=== PATIENT | male | born 1965 | race American Indian/Alaskan Native ===

== ENCOUNTER 2017-04-05 13:55 | Emergency (ER) | payer SELFPAY ==
[2017-04-05 14:31] LABS: Hematocrit 41.5 % (35.5-45.6); Hemoglobin 13.8 gm/dl (11.8-15.2); Mean Corpuscular HGB Conc 33 % (32-34); Mean Corpuscular Hemoglobin 31 pg (28-32); Mean Corpuscular Volume 93 fl (84-94); Platelet Count 244 K/mm3 (140-440); Red Blood Count 4.48 M/mm3 (3.65-5.03); Red Cell Distribution Width 13.9 % (13.2-15.2); White Blood Count 6.3 K/mm3 (4.5-11.0)
[2017-04-05 14:48] LABS: Anion Gap 17 mmol/L; BUN/Creatinine Ratio 11; Blood Urea Nitrogen 9 mg/dL (9-20); Calcium 8.5 mg/dL (8.4-10.2); Carbon Dioxide 26 mmol/L (22-30); Chloride 100.7 mmol/L (98-107); Glucose 107 mg/dL (75-100); Potassium 3.4 mmol/L (3.6-5.0); Sodium 140 mmol/L (137-145)
[2017-04-05 15:01] LABS: Blastocytes % (Manual) 0 %; Diff Status Complete; RBC Morphology Normal
[2017-04-05 16:18] LABS: Mucus,Urine 1+ /HPF
[2017-04-05 16:25] LABS: Bilirubin,Urine NEG (Negative); Blood,Urine MOD (Negative); Ketones,Urine NEG (Negative); Leukocyte Esterase,Urine NEG (Negative); Nitrite,Urine NEG (Negative); Protein,Urine <15 mg/dL mg/dL (Negative)
--- NOTE | 2017-04-05 17:35 | Emergency Department Report ---
ED Male HPI - General Chief complaint: Urogenital-Male Stated complaint: BLOOD IN URINE Source: patient Mode of arrival: Ambulatory Limitations: No Limitations - History of Present Illness Initial comments: 51 y/o M presents with a complaint of blood in his urine. 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 Pt denies any visible blood in his urine, any frequency, urgency, or dysuria. 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 Therefore he states that occasional he donna have right flank pain that comes and goes. He denies a previous hx of kidney stones, bladder or prostate cancer. No family hx of such either. Pt denies any other symptoms today including no pain, fever, chills, chest pain, or SOB at this time. NKDA. STEARNS Complaint: other (hematuria) -: month(s) (2 months ago) - Related Data Allergies Allergy/AdvReac Type Severity Reaction Status Date / Time No Known Allergies Allergy Unverified 04/05/17 14:07 ED Review of Systems ROS: Stated complaint: BLOOD IN URINE Other details as noted in HPI Constitutional: denies: chills, fever Eyes: denies: eye pain, eye discharge, vision change ENT: denies: ear pain, throat pain Respiratory: denies: cough, shortness of breath, wheezing Cardiovascular: denies: chest pain, palpitations Gastrointestinal: denies: abdominal pain, nausea, diarrhea Genitourinary: hematuria, other Musculoskeletal: back pain (right flank pain on occasion) Skin: denies: rash, lesions Neurological: denies: headache, weakness, paresthesias Psychiatric: denies: anxiety, depression ED Past Medical Hx - Past Medical History Previous Medical History?: No - Surgical History Past Surgical History?: No - Social History Smoking Status: Never Smoker Substance Use Type: Alcohol ED Physical Exam - General Limitations: No Limitations General appearance: alert, in no apparent distress - Head Head exam: Present: atraumatic, normocephalic - Eye Eye exam: Present: normal appearance - Neck Neck exam: Present: normal inspection - Respiratory Respiratory exam: Present: normal lung sounds bilaterally. Absent: respiratory distress - Cardiovascular Cardiovascular Exam: Present: regular rate, normal rhythm. Absent: systolic murmur, diastolic murmur, rubs, gallop - GI/Abdominal GI/Abdominal exam: Present: soft, normal bowel sounds - Back Exam Back exam: Present: normal inspection, other (no CVAT b/l, no flank pain at this time) - Neurological Exam Neurological exam: Present: alert, oriented X3 - Psychiatric Psychiatric exam: Present: normal affect, normal mood - Skin Skin exam: Present: warm, dry, intact, normal color. Absent: rash ED Course Vital Signs 04/05/17 04/05/17 04/05/17 14:07 16:51 19:43 Temperature 98.4 F 97.7 F Pulse Rate 81 66 63 Respiratory 18 18 18 Rate Blood Pressure 146/94 Blood Pressure 129/83 158/92 [Right] O2 Sat by Pulse 97 95 98 Oximetry ED Medical Decision Making - Lab Data Result diagrams: 04/05/17 14:19 04/05/17 14:19 - Radiology Data Radiology results: report reviewed, image reviewed CT abdomen and pelvis: Was indicative of umbilical hernia, simple renal cyst, and small left adrenal adenoma. - Medical Decision Making Basic bloodwork and labs were performed: CBC, BMP UA, and GC/chlaymdia were conducted. All of which were essentially unremarkable with the exception of moderate blood in the urine-- with the hx of periodic flank pain on the R a CT was ordered. CT w/o contrast was indicative of a small renal cyst right side, left adrenal adenoma, and small umbilical hernia. Case was discussed with Dr. Humphreys- who states that the renal cyst and the heavy lifting could be the source of the hematuria; pt was discharged with referrals to PCP (routine check up) and urology. There was no emergent findings that would indicate action today. Pt was discharged in stable condition, alert and oriented, and in no resp distress. Pt was called April 06 at around 8:15 pm and a VM was left to inform about the umbilical hernia and reiterate findings explained to him on the imaging yesterday. Critical care attestation.: If time is entered above; I have spent that time in minutes in the direct care of this critically ill patient, excluding procedure time. ED Disposition Clinical Impression: Renal cyst Adrenal adenoma Qualifiers: Laterality: left Qualified Code(s): D35.02 - Benign neoplasm of left adrenal gland Disposition: DC-01 TO HOME OR SELFCARE Is pt being admited?: No Does the pt Need Aspirin: No Condition: Stable Instructions: Flank Pain (ED) Additional Instructions: Please follow-up with urology within 3-5 days. Please follow-up with PCP within 1 week for repeat labs. Please return to the ED immediately if your presenting symptoms progress or worsen. Referrals: [facility] [Outside] - 3-5 Days [facility] [Outside] - 3-5 Days SUSHMA VILLALTA MD [Staff Physician] - 3-5 Days PRIMARY CAREMD [Primary Care Provider] - 3-5 Days Forms: Work/School Release Form(ED)
--- NOTE | 2017-04-05 18:53 | Cat Scan Report ---
FINAL REPORT EXAM: CT ABDOMEN PELVIS WO CON HISTORY: hematuria and R flank pain TECHNIQUE: CT of the abdomen and pelvis was performed without intravenous contrast. Reconstructions were included in the coronal and sagittal planes. PRIORS: None. FINDINGS: Lower thorax: The lung bases are clear. The visualized portions of the heart are normal. Liver: The liver is normal in attenuation. No intrahepatic biliary duct dilation. No focal hepatic lesions. Gallbladder/ biliary system: No cholelithiasis. The common bile duct appears nondilated. Spleen: No splenic lesions are seen. Pancreas: No pancreatic lesions are seen. No pancreatic duct dilation. Kidneys: A tiny simple right renal cyst is seen. No hydronephrosis. No renal or ureteral calcifications. Adrenal glands: There is a millimeter left adrenal adenoma. No right adrenal lesions. Vasculature: The abdominal aorta is nondilated. Lymph nodes: No enlarged lymph nodes are seen in the abdomen or pelvis. Bowel, mesentery, peritoneum: No bowel obstruction. No free fluid or free air. The appendix is normal. No colonic diverticulosis. No bowel wall thickening. Urinary bladder: No filling defects are seen. Pelvis: Normal anatomy is noted. No masses. Abdominal wall: Fat containing umbilical hernia is seen. Bones: No acute or chronic osseous finding. IMPRESSION: 1. No acute intra-abdominal or intrapelvic process. 2. Fat containing umbilical hernia. 3. Simple right renal cyst. 4. Small left adrenal adenoma.
[2017-04-05 19:44] VITALS: BP 158/92
== END 2017-04-05 19:44 | disposition home or self-care (01) ==
LOC: ED 13:55
DX: D35.02 Benign neoplasm of left adrenal gland (principal); N28.1 Cyst of kidney, acquired
CPT/HCPCS: 36415; 74176; 80048; 81001; 85007; 85025; 87591